=== PATIENT | male | born 1980 ===

== ENCOUNTER 2020-09-07 05:34 | Day surgery (SDC) | payer OTHER ==
[~2020-09-07 05:34] MED LIST: COZAAR100 MG PO; SINGULAIR10 MG PO; TRULICITY0.75 MG/0.; XIGDUO XR 5 MG1 EAC1 PO; ZYRTEC10 M3 PO
== END 2020-09-07 11:00 | disposition home or self-care (01) ==
LOC: CIR.AMB 05:34
PROVIDERS: ATTEND Urology
DX: N47.6 Balanoposthitis (principal); Z20.822 Contact with and (suspected) exposure to COVID-19